=== PATIENT | female | born 1995 | race Caucasian/White ===

== ENCOUNTER 2017-01-26 19:02 | Emergency (ER) | payer OTHER ==
[~2017-01-26] VITALS: Ht 172.7 cm; Wt 102.4 kg
[~2017-01-26 19:02] MED LIST: DOXY100T PO; Z.0.NO CURRENT MEDS
[2017-01-26 19:07] VITALS: BP 151/81; PULSE 97; RESP 14; TEMP 98.6; O2SAT 100
--- NOTE | 2017-01-26 20:14 | PD ---
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 Patient's LMP was 12/27/16. This is her first . She took a home test which was positive. She states that 2 days ago she had some vaginal spotting that was more noticeable on the toilet paper. Yesterday she noticed last spotting, and today she is barely having any spotting. She has been having intermittent pelvic and lower back cramping. Currently she is pain- free. No urinary symptoms. No fevers or chills. PFSH Past Medical History Blood Disorders: No Diminished Hearing: No Musculoskeletal: Yes (LEFT ARM FRACTURE) Immunizations Current: Yes Tetanus Vaccination: Unknown Influenza Vaccination: No ?: LMP: 12/27/16 Social History Alcohol Use: Yes Tobacco Use: No Substance Use: No Allergies-Medications (Allergen,Severity, Reaction): Coded Allergies: No Known Allergies (Verified , 01/26/17) Reported Meds & Prescriptions Reported Meds & Active Scripts Active No Active Prescriptions or Reported Medications Review of Systems Except as stated in HPI: all other systems reviewed are Neg Physical Exam Narrative GENERAL: Well-developed, well-nourished, comfortable, no acute distress. SKIN: Focused skin assessment warm/dry. No rash. HEAD: Atraumatic. Normocephalic. EYES: Pupils equal and round. No scleral icterus. No injection or drainage. ENT: Mucous membranes pink and moist. CARDIOVASCULAR: Regular rate and rhythm. No murmur appreciated. RESPIRATORY: No accessory muscle use. Clear to auscultation. Breath sounds equal bilaterally. GASTROINTESTINAL: Abdomen soft, non-tender, nondistended. MUSCULOSKELETAL: No obvious deformities. No clubbing. No cyanosis. No edema. No CVA tenderness. No midline vertebral step-off or tenderness. NEUROLOGICAL: Awake and alert. No obvious cranial nerve deficits. Motor grossly within normal limits. Normal speech. PSYCHIATRIC: Appropriate mood and affect; insight and judgment normal. Data Data Last Documented VS Vital Signs Date Time Temp Pulse Resp B/P Pulse Ox O2 Delivery O2 Flow Rate FiO2 01/26/17 21:31 70 18 132/70 99 Room Air 01/26/17 19:07 98.6 Orders Beta Hcg (Quant/Titer) (01/26/17 20:01) Complete Blood Count With Diff (01/26/17 20:01) Comprehensive Metabolic Panel (01/26/17 20:01) Type And Screen (01/26/17 20:01) Urinalysis - C+S If Indicated (01/26/17 20:01) Ed Urine Pregnancytest Poc (01/26/17 20:01) Urine Culture (01/26/17 20:15) Us Pelvis (Ques Pr/Ect)W Trans (01/26/17 ) Rhogam Only (01/26/17 21:58) Labs Laboratory Tests Test 01/26/17 01/26/17 20:15 20:20 Urine Color YELLOW Urine Turbidity CLEAR Urine pH 6.0 Urine Specific [place] 1.010 Urine Protein NEG mg/dL Urine Glucose (UA) NEG mg/dL Urine Ketones NEG mg/dL Urine Occult Blood SMALL Urine Nitrite NEG Urine Bilirubin NEG Urine Leukocyte Esterase SMALL Urine RBC 0-3 /hpf Urine WBC 20-24 /hpf Urine Squamous Epithelial > 8 /hpf Cells Urine Bacteria FEW /hpf Microscopic Urinalysis Comment CULTURE INDICATED White Blood Count 12.0 TH/MM3 Red Blood Count 4.28 MIL/MM3 Hemoglobin 12.0 GM/DL Hematocrit 34.9 % Mean Corpuscular Volume 81.5 FL Mean Corpuscular Hemoglobin 28.1 PG Mean Corpuscular Hemoglobin 34.4 % Concent Red Cell Distribution Width 13.9 % Platelet Count 272 TH/MM3 Mean Platelet Volume 8.2 FL Neutrophils (%) (Auto) 69.1 % Lymphocytes (%) (Auto) 22.2 % Monocytes (%) (Auto) 7.4 % Eosinophils (%) (Auto) 0.9 % Basophils (%) (Auto) 0.4 % Neutrophils # (Auto) 8.3 TH/MM3 Lymphocytes # (Auto) 2.7 TH/MM3 Monocytes # (Auto) 0.9 TH/MM3 Eosinophils # (Auto) 0.1 TH/MM3 Basophils # (Auto) 0.0 TH/MM3 CBC Comment DIFF FINAL Differential Comment Sodium Level 142 MEQ/L Potassium Level 3.5 MEQ/L Chloride Level 107 MEQ/L Carbon Dioxide Level 27.2 MEQ/L Anion Gap 8 MEQ/L Blood Urea Nitrogen 8 MG/DL Creatinine 0.77 MG/DL Estimat Glomerular Filtration 95 ML/MIN Rate Random Glucose 115 MG/DL Calcium Level 9.0 MG/DL Total Bilirubin 0.2 MG/DL Aspartate Amino Transf 14 U/L (AST/SGOT) Alanine Aminotransferase 23 U/L (ALT/SGPT) Alkaline Phosphatase 40 U/L Total Protein 7.4 GM/DL Albumin 3.7 GM/DL Human Chorionic Gonadotropin, 34 MIU/ML Quant Blood Type A NEGATIVE Antibody Screen NEGATIVE Blood Bank Comment MDM Medical Decision Making Medical Screen Exam Complete: Yes Emergency Medical Condition: Yes Differential Diagnosis , first trimester bleeding, ectopic , implantation bleed, threatened , inevitable Narrative Course Vital signs reviewed. CBC shows WBC 12, hemoglobin 12, hematocrit 34.9, platelets 272. CMP is unremarkable. Beta hCG is 34. Blood type is A-. UA: Small occult blood, small leukocyte esterase, 20-24 WBCs, greater than 8 squamous epithelial cells, few bacteria. Pelvic ultrasound: CONCLUSION: 1. The endometrium is diffusely thickened which is nonspecific. 2. Ill-defined hypoechoic masslike area in the right ovary which may represent a complex cyst. 3. Small amount of free fluid in the cul-de-sac. Case discussed with on-call OB hospitalist. He recommends giving the patient RhoGam and close follow-up with 48 hour beta hCG. Patient was made aware of all findings. She is resting comfortably. Currently she is pain-free. There are no peritoneal signs on exam. She was provided a copy of her pelvic ultrasound report. She'll be started on Macrobid. She was instructed to return to the emergency department in 48 hours for repeat beta hCG. She was informed on when to return to the emergency Department sooner. She verbalizes understanding and agreement with plan. Diagnosis Primary Impression: First trimester bleeding Additional Impression: UTI (urinary tract infection) Qualified Code: N39.0 - Urinary tract infection with hematuria, site unspecified Referrals: Chemical Research Engineer 2 days Additional Instructions: Follow-up with an PU[employer] AND STILL OPERATOR doctor in the next 2 days. Return to the emergency department in 48 hours for repeat beta hCG. Return to the emergency Department sooner for worsening symptoms or any other concerns. Scripts Nitrofurantoin Monohydrate Macrocrystals (Macrobid)100 Mg [id number] Mg PO BID 7 Days Ref 0 Prov:Clifton Purvis MD 5/23/17 Disposition: 01 DISCHARGE HOME Condition: Stable Clifton Purvis MD January 26, 2017 20:14
[2017-01-26 20:30] LABS: AUTOMATED NEUTROPHIL # 8.3 TH/MM3 (1.8-7.7); BASOPHIL % 0.4 % (0.0-2.0); EOSINOPHIL # 0.1 TH/MM3 (0-0.4); EOSINOPHIL % 0.9 % (0.0-4.0); HEMATOCRIT 34.9 % (35.0-46.0); HEMO FLAGS DIFF FINAL; LYMPH % 22.2 % (9.0-44.0); LYMPHOCYTE # 2.7 TH/MM3 (1.0-4.8); MEAN CELL VOLUME 81.5 FL (80.0-100.0); MEAN CORPUSCULAR HEMOGLOBIN 28.1 PG (27.0-34.0); MEAN CORPUSCULAR HGB CONC 34.4 % (32.0-36.0); MONO % 7.4 % (0.0-8.0); NEUT % 69.1 % (16.0-70.0); PLATELET COUNT 272 TH/MM3 (150-450); RED BLOOD COUNT 4.28 MIL/MM3 (4.00-5.30); RED CELL DISTRIBUTION WIDTH 13.9 % (11.6-17.2)
[2017-01-26 20:33] LABS: BLOOD, URINE SMALL (NEG); GLUCOSE,URINE NEG (NEG); KETONE, URINE NEG (NEG); NITRITE,URINE NEG (NEG)
[2017-01-26 20:34] LABS: CHLORIDE 107 MEQ/L (98-107); POTASSIUM 3.5 MEQ/L (3.5-5.1); SODIUM (NA) 142 MEQ/L (136-145)
[2017-01-26 20:38] LABS: ANION GAP 8 MEQ/L (5-15); BICARBONATE 27.2 MEQ/L (21.0-32.0); BLOOD UREA NITROGEN 8 MG/DL (7-18)
[2017-01-26 20:41] LABS: ALT (GPT) 23 U/L (10-53); AST (GOT) 14 U/L (15-37); GLOMERULAR FILTRATION RATE 95 ML/MIN (>89)
[2017-01-26 20:43] LABS: TOTAL BILIRUBIN ADULT 0.2 MG/DL (0.2-1.0)
[2017-01-26 20:44] LABS: ALKALINE PHOSPHATASE 40 U/L (45-117)
[2017-01-26 20:46] LABS: BETA HCG QUANT 34 MIU/ML (0-5)
[2017-01-26 20:51] LABS: BACTERIA, URINE FEW /hpf; COMMENT (UR) CULTURE INDICATED; CULTURE IF INDICATED CULTURE INDICATED; RBC, URINE 0-3 /hpf (0-3); SQUAMOUS EPITHELIAL CELL URINE > 8 /hpf (0-5); URINE COLOR YELLOW (YELLW/STRAW)
[2017-01-26 21:31] VITALS: BP 132/70; PULSE 70; RESP 18; O2SAT 99
--- NOTE | 2017-01-26 21:31 | RADHPO ---
EXAM DATE/TIME: 01/26/2017 21:05 [facility] COMPARISON: No previous studies available for comparison. INDICATIONS : Spotting. LAB(S): Beta-hC MEDICAL HISTORY : . SURGICAL HISTORY : None. ENCOUNTER: Initial ACUITY: 1 day PAIN SCORE: 0/10 LOCATION: Bilateral pelvis MEASUREMENTS: UTERUS: 7.8 x 5.1 x 3.6 cm ENDOMETRIAL STRIPE: 15 mm RIGHT OVARY: 3.7 x 2.2 x 2.2 cm LEFT OVARY: 2.5 x 1.2 x 1.7 cm FREE FLUID: Yes CROWN RUMP LENGTH: not seen = WKS DAYS FHR: not seen BPM FINDINGS: UTERUS: The myometrium has homogeneous echotexture without mass. The endometrium is thickened. RIGHT OVARY: There is an ill-defined hypoechoic area in the right ovary measuring 1.6 x 1.3 x 1.5 cm with low leve l internal echogenicity and no color flow. LEFT OVARY: Ovary contains no mass or significant cystic lesion. MISCELLANEOUS: There is a small amount of free fluid in the cul-de-sac. CONCLUSION: 1. The endometrium is diffusely thickened which is nonspecific. 2. Ill-defined hypoechoic masslike area in the right ovary which may represent a complex cyst. 3. Small amount of free fluid in the cul-de-sac. George Hernandez MD on January 26, 2017 at 21:25 Board Certified Radiologist. This report was verified electronically.
[2017-01-26] MEDS ORDERED: MACR100C2 PO (22:09)
[2017-01-26] MEDS ORDERED: NITROFURANTOIN MONOHYD MACROCR 100 MG CAP PO ONE (22:15)
[2017-01-26 22:16] VITALS: BP 114/62; PULSE 74; RESP 18; O2SAT 99
[2017-01-26 23:43] VITALS: BP 110/60; PULSE 72; RESP 18; O2SAT 98
== END 2017-01-27 00:34 | disposition home or self-care (01) ==
LOC: PHED 19:02
DX: O23.41 Unspecified infection of urinary tract in pregnancy, first trimester (principal); O46.91 Antepartum hemorrhage, unspecified, first trimester; Z34.01 Encounter for supervision of normal first pregnancy, first trimester
CPT/HCPCS: 76700; 76817; 80053; 81001; 84702; 84703; 85025; 86850; 86900; 86901; 87086; 90384; 99284; J2790

== ENCOUNTER 2017-02-07 17:33 | Emergency (ER) | payer OTHER ==
[~2017-02-07] VITALS: Ht 172.7 cm; Wt 100.0 kg
[~2017-02-07 17:33] MED LIST changes: -DOXY100T PO; +MACR100C2 PO; -Z.0.NO CURRENT MEDS
[2017-02-07 17:34] VITALS: BP 159/90; PULSE 84; RESP 20; TEMP 98.8; O2SAT 100
--- NOTE | 2017-02-07 17:46 | PD ---
Physical Exam Date Seen by Provider: Feb 07, 2017 Time Seen by Provider: 17:44 Data Data Last Documented VS Vital Signs Date Time Temp Pulse Resp B/P Pulse Ox O2 Delivery O2 Flow Rate FiO2 02/07/17 17:34 98.8 84 20 159/90 100 Room Air [facility] Supervised Visit with GERRY: No Narrative Course 21 YO F with complaint of 3 hour history of vaginal bleeding and abdominal cramping. LMP ~12/24. Vitals reviewed. Awaiting bed placement. Nicolette Leon Feb 07, 2017 17:46
[2017-02-07] MEDS ORDERED: SODIUM CHLOR 0.9% 1000 ML INJ 1,000 ML IV ONE (18:15)
[2017-02-07 18:38] LABS: BLOOD, URINE LARGE (NEG); GLUCOSE,URINE NEG (NEG); KETONE, URINE NEG (NEG); NITRITE,URINE NEG (NEG); PH, URINE 5.5 (5.0-8.5); URINE COLOR LIGHT-YELLOW (YELLW/STRAW)
[2017-02-07 18:39] LABS: AUTOMATED NEUTROPHIL # 7.7 TH/MM3 (1.8-7.7); BASOPHIL % 0.4 % (0.0-2.0); EOSINOPHIL # 0.1 TH/MM3 (0-0.4); EOSINOPHIL % 0.9 % (0.0-4.0); HEMATOCRIT 33.9 % (35.0-46.0); HEMO FLAGS DIFF FINAL; LYMPH % 19.8 % (9.0-44.0); LYMPHOCYTE # 2.1 TH/MM3 (1.0-4.8); MEAN CELL VOLUME 81.7 FL (80.0-100.0); MEAN CORPUSCULAR HEMOGLOBIN 27.6 PG (27.0-34.0); MEAN CORPUSCULAR HGB CONC 33.8 % (32.0-36.0); MONO % 7.4 % (0.0-8.0); NEUT % 71.5 % (16.0-70.0); PLATELET COUNT 263 TH/MM3 (150-450); RED BLOOD COUNT 4.14 MIL/MM3 (4.00-5.30); RED CELL DISTRIBUTION WIDTH 14.6 % (11.6-17.2); WHITE BLOOD COUNT 10.8 TH/MM3 (4.0-11.0)
[2017-02-07 18:51] LABS: ALT (GPT) 23 U/L (10-53); ANION GAP 8 MEQ/L (5-15); AST (GOT) 15 U/L (15-37); BICARBONATE 26.9 MEQ/L (21.0-32.0); BLOOD UREA NITROGEN 7 MG/DL (7-18); CHLORIDE 105 MEQ/L (98-107); GLOMERULAR FILTRATION RATE 98 ML/MIN (>89); POTASSIUM 3.6 MEQ/L (3.5-5.1); SODIUM (NA) 140 MEQ/L (136-145)
[2017-02-07 18:55] LABS: ALKALINE PHOSPHATASE 43 U/L (45-117); BETA HCG QUANT 961 MIU/ML (0-5); TOTAL BILIRUBIN ADULT 0.2 MG/DL (0.2-1.0)
[2017-02-07 18:57] LABS: BACTERIA, URINE RARE /hpf; COMMENT (UR) CULT NOT INDICATED; COMMENT2 (UR) CULT NOT INDICATED; CULTURE IF INDICATED CULT NOT INDICATED; SQUAMOUS EPITHELIAL CELL URINE 0-5 /hpf (0-5); WBC, URINE 0-2 /hpf (0-5)
[2017-02-07 20:29] VITALS: BP 153/72; PULSE 73; RESP 18; O2SAT 98
--- NOTE | 2017-02-07 20:50 | RADRPT ---
EXAM DATE/TIME: 02/07/2017 19:50 [facility] COMPARISON: US PELVIS (QUEST PREG/ECTOPIC) W/TRANSVAG, January 26, 2017, 21:05. INDICATIONS : Pelvic pain and bleeding with . LAB(S): Beta-hC MEDICAL HISTORY : . Left arm fracture. SURGICAL HISTORY : Left leg fracture repair. ENCOUNTER: Subsequent ACUITY: 1 day PAIN SCORE: 5/10 LOCATION: Bilateral pelvis MEASUREMENTS: UTERUS: 8.7 x 4.3 x 3.8 cm ENDOMETRIAL STRIPE: 4 mm RIGHT OVARY: 3.9 x 1.9 x 1.9 cm LEFT OVARY: 2.1 x 1.7 x 1.5 cm FREE FLUID: Yes Trace amount in posterior cul de sac. CROWN RUMP LENGTH: Non visualized. = WKS DAYS FHR: Non visualized. BPM FINDINGS: UTERUS: complex fluid in the endocervical canal. No gestational sac. RIGHT OVARY: cyst in the right ovary measures 18 x 18 x 13 mm and slightly complex. LEFT OVARY: Ovary contains no mass or significant cystic lesion. MISCELLANEOUS: Trace pelvic free fluid. CONCLUSION: 1. No intrauterine identified. Close interval followup. 2. Complex fluid in the endocervical canal likely hemorrhage. 3. Ectopic not seen but not excluded. 4. Trace fluid in cul-de-sac. 5. Complex right ovarian cyst measuring 18 mm. Richard Jean Baptiste MD on February 07, 2017 at 20:46 Board Certified Radiologist. This report was verified electronically.
--- NOTE | 2017-02-07 21:06 | PD ---
HPI Chief Complaint: Related Problem Time Seen by Provider: 17:59 Travel History International Travel<30 days: No Contact w/Intl Traveler<30days: No Traveled to known affect area: No History of Present Illness HPI Patient 21 year old female approximately 4-6 weeks base on LMP, who comes in due to vaginal bleeding for 2 hours. She says that she started having bleeding like a normal period a few hours ago. She has passed clots, but has not noticed any tissue. She saw her OB about 5 days ago, and she says her beta hCG was around 970 at that point. She says she has some lower abdominal cramping. She denies dizziness, nausea, vomiting, fevers. [facility] Past Medical History Medical History: Denies Significant Hx Blood Disorders: No Diminished Hearing: No Musculoskeletal: Yes (LEFT ARM FRACTURE) Immunizations Current: Yes ?: LMP: 12/24/2016 Social History Alcohol Use: No Tobacco Use: No Substance Use: No Allergies-Medications (Allergen,Severity, Reaction): Coded Allergies: No Known Allergies (Verified , 02/07/17) Reported Meds & Prescriptions Reported Meds & Active Scripts Active No Active Prescriptions or Reported Medications Review of Systems Except as stated in HPI: all other systems reviewed are Neg General / Constitutional: No: Fever, Chills HENT: No: Headaches, Lightheadedness Cardiovascular: No: Chest Pain or Discomfort, Palpitations Respiratory: No: Shortness of Breath Gastrointestinal: No: Nausea, Vomiting Genitourinary: Positive: Vaginal Bleeding Musculoskeletal: No: Weakness Skin: No Rash, No Change in Pigmentation Physical Exam Narrative GENERAL: Awake and alert, no acute distress. SKIN: Focused skin assessment warm/dry. HEAD: Atraumatic. Normocephalic. EYES: Pupils equal and round. No scleral icterus. ENT: Mucous membranes pink and moist. NECK: Trachea midline. No JVD. CARDIOVASCULAR: Regular rate and rhythm. No murmur appreciated. RESPIRATORY: No accessory muscle use. Clear to auscultation. Breath sounds equal bilaterally. GASTROINTESTINAL: Abdomen soft, non-tender, nondistended. : Performed in the presence of female nurse. Blood coming from the os. Os appears open. No CMT. MUSCULOSKELETAL: No obvious deformities. No clubbing. No cyanosis. No edema. NEUROLOGICAL: Awake and alert. No obvious cranial nerve deficits. Motor grossly within normal limits. Normal speech. PSYCHIATRIC: Appropriate mood and affect; insight and judgment normal. Data Data Last Documented VS Vital Signs Date Time Temp Pulse Resp B/P Pulse Ox O2 Delivery O2 Flow Rate FiO2 02/07/17 20:29 73 18 153/72 98 Room Air 02/07/17 17:34 98.8 Orders Complete Blood Count With Diff (02/07/17 18:10) Comprehensive Metabolic Panel (02/07/17 18:10) Iv Access Insert/Monitor (02/07/17 18:10) Beta Hcg (Quant/Titer) (02/07/17 18:10) Urinalysis - C+S If Indicated (02/07/17 18:10) Ed Poc Ultrasound (02/07/17 ) Sodium Chlor 0.9% 1000 Ml Inj (Ns 1000 M (02/07/17 18:15) Ed Poc Ultrasound (02/07/17 ) Us Pelvis (Ques Pr/Ect)W Trans (02/07/17 ) Rhogam Only (02/07/17 21:07) Labs Laboratory Tests Test 02/07/17 02/07/17 02/07/17 18:27 18:28 21:22 Urine Color LIGHT-YELLOW Urine Turbidity CLEAR Urine pH 5.5 Urine Specific [place] 1.002 Urine Protein NEG mg/dL Urine Glucose (UA) NEG mg/dL Urine Ketones NEG mg/dL Urine Occult Blood LARGE Urine Nitrite NEG Urine Bilirubin NEG Urine Urobilinogen LESS THAN 2.0 MG/DL Urine Leukocyte Esterase NEG Urine RBC 4-9 /hpf Urine WBC 0-2 /hpf Urine Squamous Epithelial 0-5 /hpf Cells Urine Bacteria RARE /hpf Microscopic Urinalysis Comment CULT NOT INDICATED White Blood Count 10.8 TH/MM3 Red Blood Count 4.14 MIL/MM3 Hemoglobin 11.4 GM/DL Hematocrit 33.9 % Mean Corpuscular Volume 81.7 FL Mean Corpuscular Hemoglobin 27.6 PG Mean Corpuscular Hemoglobin 33.8 % Concent Red Cell Distribution Width 14.6 % Platelet Count 263 TH/MM3 Mean Platelet Volume 8.7 FL Neutrophils (%) (Auto) 71.5 % Lymphocytes (%) (Auto) 19.8 % Monocytes (%) (Auto) 7.4 % Eosinophils (%) (Auto) 0.9 % Basophils (%) (Auto) 0.4 % Neutrophils # (Auto) 7.7 TH/MM3 Lymphocytes # (Auto) 2.1 TH/MM3 Monocytes # (Auto) 0.8 TH/MM3 Eosinophils # (Auto) 0.1 TH/MM3 Basophils # (Auto) 0.0 TH/MM3 CBC Comment DIFF FINAL Differential Comment Sodium Level 140 MEQ/L Potassium Level 3.6 MEQ/L Chloride Level 105 MEQ/L Carbon Dioxide Level 26.9 MEQ/L Anion Gap 8 MEQ/L Blood Urea Nitrogen 7 MG/DL Creatinine 0.75 MG/DL Estimat Glomerular Filtration 98 ML/MIN Rate Random Glucose 116 MG/DL Calcium Level 9.3 MG/DL Total Bilirubin 0.2 MG/DL Aspartate Amino Transf 15 U/L (AST/SGOT) Alanine Aminotransferase 23 U/L (ALT/SGPT) Alkaline Phosphatase 43 U/L Total Protein 7.2 GM/DL Albumin 3.7 GM/DL Human Chorionic Gonadotropin, 961 MIU/ML Quant Blood Bank Comment MDM Medical Decision Making Medical Screen Exam Complete: Yes Emergency Medical Condition: Yes Medical Record Reviewed: Yes Differential Diagnosis miscarriage vs threatened vs UTI Narrative Course Patient is a 21-year-old female who comes in due to vaginal bleeding in . Exam shows blood from the os as well as an open cervical os. IV established, labs sent. Beta hCG is 961. Per patient her last beta, 5 days ago was 970. The hormone is not rising appropriately. Ultrasound performed shows an empty uterus. Last 24 hours Impressions Pelvis Ultrasound 02/07/17 0000 Signed Impressions: Service Date/Time: Tuesday, February 07, 2017 19:50 - CONCLUSION: 1. No intrauterine identified. Close interval followup. 2. Complex fluid in the endocervical canal likely hemorrhage. 3. Ectopic not seen but not excluded. 4. Trace fluid in cul-de-sac. 5. Complex right ovarian cyst measuring 18 mm. Richard Jean Baptiste MD Patient has blood type A-. I spoke with Dr. Agrawal of OB who suggests giving another dose of Rhogam. Patient given the Rhogam. She is advised to follow-up in 2-3 days with her OB for repeat beta hCG as well as repeat ultrasound. She is comfortable with this plan. She will be discharged home. Advised to return to the ED as needed for any worsening symptoms. Diagnosis Primary Impression: Patient Instructions: General Instructions, Miscarriage (ED) Additional Instructions: Your Beta HCG was 961 today. Follow up with your OB in 2-3 days for repeat blood work and ultrasound. You did receive Rhogam today because your blood type is A-. Return to the ED as needed for any worsening symptoms. Scripts No Active Prescriptions or Reported Meds Disposition: 01 DISCHARGE HOME Condition: Stable Chelsea Fang MD Feb 07, 2017 21:06
== END 2017-02-07 23:33 | disposition home or self-care (01) ==
LOC: NEPD 17:33
DX: O03.9 Complete or unspecified spontaneous abortion without complication (principal)
CPT/HCPCS: 76700; 76817; 80053; 81001; 84702; 85025; 90384; 96360; 96372; 99285; J7030; J2790

== ENCOUNTER 2017-07-13 22:25 | Emergency (ER) | payer OTHER ==
[~2017-07-13] VITALS: Ht 172.7 cm; Wt 105.0 kg
[2017-07-13 22:28] VITALS: BP 168/81; PULSE 74; RESP 16; TEMP 98.5; O2SAT 100
--- NOTE | 2017-07-14 00:18 | PD ---
HPI Chief Complaint: Complaint Time Seen by Provider: 23:58 Travel History International Travel<30 days: No Contact w/Intl Traveler<30days: No Traveled to known affect area: No History of Present Illness HPI 22-year-old female complains of lower abdominal discomfort. Patient states that she has intermittent lower abdominal discomfort for the past few months. Patient denies any nausea vomiting diarrhea. Patient denies any dysuria or frequency. Patient denies any vaginal discharge or bleeding. Patient was seen by electrician machine shop a month ago and had a pelvic exam done at that time. Patient states that she was treated for bacterial vaginosis. Patient has history of small ovarian cyst in the past. Patient states that she noticed small amount of blood on the tissue after she urinates this evening. PFSH Past Medical History Medical History: Denies Significant Hx Blood Disorders: No Diminished Hearing: No Musculoskeletal: Yes (LEFT ARM FRACTURE) Immunizations Current: Yes Tetanus Vaccination: Unknown Influenza Vaccination: No ?: Not LMP: 1-2 WEEK AGO Past Surgical History Surgical History: No Previous Surgery Social History Alcohol Use: No Tobacco Use: No Substance Use: No Allergies-Medications (Allergen,Severity, Reaction): Coded Allergies: No Known Allergies (Verified Adverse Reaction, Unknown, 07/13/17) Reported Meds & Prescriptions Reported Meds & Active Scripts Active No Active Prescriptions or Reported Medications Review of Systems General / Constitutional: No: Fever Eyes: No: Visual changes HENT: No: Headaches Cardiovascular: No: Chest Pain or Discomfort Respiratory: No: Shortness of Breath Gastrointestinal: Positive: Abdominal Pain Genitourinary: Positive: Pelvic Pain, No: Dysuria Musculoskeletal: No: Pain Skin: No Rash Neurologic: No: Weakness Psychiatric: No: Depression Endocrine: No: Polydipsia Hematologic/Lymphatic: No: Easy Bruising Physical Exam Narrative GENERAL: Well-nourished, well-developed patient. SKIN: Focused skin assessment warm/dry. HEAD: Normocephalic. EYES: No scleral icterus. No injection or drainage. NECK: Supple, trachea midline. No JVD or lymphadenopathy. CARDIOVASCULAR: Regular rate and rhythm without murmurs, gallops, or rubs. RESPIRATORY: Breath sounds equal bilaterally. No accessory muscle use. GASTROINTESTINAL: Abdomen soft, non-tender, nondistended. MUSCULOSKELETAL: No cyanosis, or edema. BACK: Nontender without obvious deformity. No CVA tenderness. POLITICAL SCIENCE PROFESSOR exam: No obvious blood in the vaginal vault. No cervical motion tenderness. Uterus is nonenlarged and nontender palpation. No adnexal masses or tenderness. Data Data Last Documented VS Vital Signs Date Time Temp Pulse Resp B/P (MAP) Pulse Ox O2 Delivery O2 Flow Rate FiO2 07/13/17 22:28 98.5 74 16 168/81 (110) 100 Orders Orders Complete Blood Count With Diff (07/14/17 00:08) Comprehensive Metabolic Panel (07/14/17 00:08) Urinalysis - C+S If Indicated (07/14/17 00:08) Beta Hcg (Quant/Titer) (07/14/17 00:08) Iv Access Insert/Monitor (07/14/17 00:08) MDM Medical Decision Making Medical Screen Exam Complete: Yes Emergency Medical Condition: Yes Differential Diagnosis Differential diagnosis including hematuria, urethritis, bladder spasm, cervicitis, , threatened AB. Narrative Course 22-year-old female with recurrent low abdominal pelvic pain and possible blood in the urine this evening. Scripts No Active Prescriptions or Reported Meds Colton Frazier MD Jul 14, 2017 00:18
[2017-07-14 00:34] LABS: AUTOMATED NEUTROPHIL # 7.3 TH/MM3 (1.8-7.7); BASOPHIL % 0.4 % (0.0-2.0); EOSINOPHIL # 0.2 TH/MM3 (0-0.4); EOSINOPHIL % 1.4 % (0.0-4.0); HEMATOCRIT 39.7 % (35.0-46.0); HEMO FLAGS DIFF FINAL; LYMPH % 29.5 % (9.0-44.0); LYMPHOCYTE # 3.5 TH/MM3 (1.0-4.8); MEAN CELL VOLUME 81.9 FL (80.0-100.0); MEAN CORPUSCULAR HEMOGLOBIN 27.2 PG (27.0-34.0); MEAN CORPUSCULAR HGB CONC 33.3 % (32.0-36.0); NEUT % 60.7 % (16.0-70.0); PLATELET COUNT 342 TH/MM3 (150-450); RED BLOOD COUNT 4.85 MIL/MM3 (4.00-5.30); RED CELL DISTRIBUTION WIDTH 13.7 % (11.6-17.2)
[2017-07-14 00:38] LABS: BLOOD, URINE NEG (NEG); GLUCOSE,URINE NEG (NEG); KETONE, URINE NEG (NEG); NITRITE,URINE NEG (NEG); SQUAMOUS EPITHELIAL CELL URINE <1 /hpf (0-5); TRANSITIONAL EPI CELLS, URINE <1 /hpf; URINE COLOR LIGHT-YELLOW (YELLW/STRAW)
[2017-07-14 00:47] LABS: COMMENT (UR) CULT NOT INDICATED; CULTURE IF INDICATED CULT NOT INDICATED
[2017-07-14 01:01] LABS: ALT (GPT) 34 U/L (10-53); ANION GAP 9 MEQ/L (5-15); AST (GOT) 21 U/L (15-37); BICARBONATE 27.8 MEQ/L (21.0-32.0); BLOOD UREA NITROGEN 7 MG/DL (7-18); CHLORIDE 103 MEQ/L (98-107); GLOMERULAR FILTRATION RATE 91 ML/MIN (>89); POTASSIUM 3.7 MEQ/L (3.5-5.1); SODIUM (NA) 140 MEQ/L (136-145)
[2017-07-14 01:04] LABS: ALKALINE PHOSPHATASE 55 U/L (45-117); BETA HCG QUANT LESS THAN 1 MIU/ML (0-5); TOTAL BILIRUBIN ADULT 0.4 MG/DL (0.2-1.0)
--- NOTE | 2017-07-14 01:41 | PD ---
Physical Exam Narrative Patient was signed out to me by Dr. Frazier pending lab results. Please see his documentation for full H&P. Briefly patient is 22-year-old female complaining of intermittent pelvic pain over the past 4-5 months. Patient denies anything making it better or worse. Patient states she saw a lining finisher several months ago but has not followed up since. Data Data Last Documented VS Vital Signs Date Time Temp Pulse Resp B/P (MAP) Pulse Ox O2 Delivery O2 Flow Rate FiO2 07/14/17 02:19 07/13/17 22:28 98.5 74 16 100 Orders Orders Complete Blood Count With Diff (07/14/17 00:08) Comprehensive Metabolic Panel (07/14/17 00:08) Urinalysis - C+S If Indicated (07/14/17 00:08) Beta Hcg (Quant/Titer) (07/14/17 00:08) Iv Access Insert/Monitor (07/14/17 00:08) Ed Discharge Order (07/14/17 01:41) Labs Laboratory Tests Test 07/14/17 00:20 White Blood Count 12.0 TH/MM3 Red Blood Count 4.85 MIL/MM3 Hemoglobin 13.2 GM/DL Hematocrit 39.7 % Mean Corpuscular Volume 81.9 FL Mean Corpuscular Hemoglobin 27.2 PG Mean Corpuscular Hemoglobin Concent 33.3 % Red Cell Distribution Width 13.7 % Platelet Count 342 TH/MM3 Mean Platelet Volume 8.3 FL Neutrophils (%) (Auto) 60.7 % Lymphocytes (%) (Auto) 29.5 % Monocytes (%) (Auto) 8.0 % Eosinophils (%) (Auto) 1.4 % Basophils (%) (Auto) 0.4 % Neutrophils # (Auto) 7.3 TH/MM3 Lymphocytes # (Auto) 3.5 TH/MM3 Monocytes # (Auto) 1.0 TH/MM3 Eosinophils # (Auto) 0.2 TH/MM3 Basophils # (Auto) 0.0 TH/MM3 CBC Comment DIFF FINAL Differential Comment Urine Color LIGHT-YELLOW Urine Turbidity CLEAR Urine pH 6.0 Urine Specific Silver Plume 1.006 Urine Protein NEG mg/dL Urine Glucose (UA) NEG mg/dL Urine Ketones NEG mg/dL Urine Occult Blood NEG Urine Nitrite NEG Urine Bilirubin NEG Urine Urobilinogen LESS THAN 2.0 MG/DL Urine Leukocyte Esterase NEG Urine RBC 1 /hpf Urine WBC 1 /hpf Urine Squamous Epithelial Cells <1 /hpf Urine Transitional Epithelial Cells <1 /hpf Microscopic Urinalysis Comment CULT NOT INDICATED Blood Urea Nitrogen 7 MG/DL Creatinine 0.79 MG/DL Random Glucose 87 MG/DL Total Protein 8.5 GM/DL Albumin 4.2 GM/DL Calcium Level 9.7 MG/DL Alkaline Phosphatase 55 U/L Aspartate Amino Transf (AST/SGOT) 21 U/L Alanine Aminotransferase (ALT/SGPT) 34 U/L Total Bilirubin 0.4 MG/DL Sodium Level 140 MEQ/L Potassium Level 3.7 MEQ/L Chloride Level 103 MEQ/L Carbon Dioxide Level 27.8 MEQ/L Anion Gap 9 MEQ/L Estimat Glomerular Filtration Rate 91 ML/MIN Human Chorionic Gonadotropin, Quant LESS THAN 1 MIU/ML MDM Supervised Visit with GERRY: No Interpretation(s) Laboratory Tests Test 07/14/17 00:20 White Blood Count 12.0 TH/MM3 (4.0-11.0) Red Blood Count 4.85 MIL/MM3 (4.00-5.30) Hemoglobin 13.2 GM/DL (11.6-15.3) Hematocrit 39.7 % (35.0-46.0) Mean Corpuscular Volume 81.9 FL (80.0-100.0) Mean Corpuscular Hemoglobin 27.2 PG (27.0-34.0) Mean Corpuscular Hemoglobin Concent 33.3 % (32.0-36.0) Red Cell Distribution Width 13.7 % (11.6-17.2) Platelet Count 342 TH/MM3 (150-450) Mean Platelet Volume 8.3 FL (7.0-11.0) Neutrophils (%) (Auto) 60.7 % (16.0-70.0) Lymphocytes (%) (Auto) 29.5 % (9.0-44.0) Monocytes (%) (Auto) 8.0 % (0.0-8.0) Eosinophils (%) (Auto) 1.4 % (0.0-4.0) Basophils (%) (Auto) 0.4 % (0.0-2.0) Neutrophils # (Auto) 7.3 TH/MM3 (1.8-7.7) Lymphocytes # (Auto) 3.5 TH/MM3 (1.0-4.8) Monocytes # (Auto) 1.0 TH/MM3 (0-0.9) Eosinophils # (Auto) 0.2 TH/MM3 (0-0.4) Basophils # (Auto) 0.0 TH/MM3 (0-0.2) CBC Comment DIFF FINAL Differential Comment Urine Color LIGHT-YELLOW (YELLW/STRAW) Urine Turbidity CLEAR (CLEAR) Urine pH 6.0 (5.0-8.5) Urine Specific Silver [place]ume 1.006 (1.002-1.035) Urine Protein NEG mg/dL (NEG-TRACE) Urine Glucose (UA) NEG mg/dL (NEG) Urine Ketones NEG mg/dL (NEG) Urine Occult Blood NEG (NEG) Urine Nitrite NEG (NEG) Urine Bilirubin NEG (NEG) Urine Urobilinogen LESS THAN 2.0 MG/DL (LESS Urine Leukocyte Esterase NEG (NEG) Urine RBC 1 /hpf (0-3) Urine WBC 1 /hpf (0-5) Urine Squamous Epithelial Cells <1 /hpf (0-5) Urine Transitional Epithelial Cells <1 /hpf (NONE) Microscopic Urinalysis Comment CULT NOT INDICATED Blood Urea Nitrogen 7 MG/DL (7-18) Creatinine 0.79 MG/DL (0.50-1.00) Random Glucose 87 MG/DL (74-106) Total Protein 8.5 GM/DL (6.4-8.2) Albumin 4.2 GM/DL (3.4-5.0) Calcium Level 9.7 MG/DL (8.5-10.1) Alkaline Phosphatase 55 U/L (45-117) Aspartate Amino Transf (AST/SGOT) 21 U/L (15-37) Alanine Aminotransferase (ALT/SGPT) 34 U/L (10-53) Total Bilirubin 0.4 MG/DL (0.2-1.0) Sodium Level 140 MEQ/L (136-145) Potassium Level 3.7 MEQ/L (3.5-5.1) Chloride Level 103 MEQ/L (98-107) Carbon Dioxide Level 27.8 MEQ/L (21.0-32.0) Anion Gap 9 MEQ/L (5-15) Estimat Glomerular Filtration Rate 91 ML/MIN (>89) Human Chorionic Gonadotropin, Quant LESS THAN 1 MIU/ML (0-5) Narrative Course Patient in no obvious distress upon re-evaluation. All pertinent laboratory/ Radiology result(s) discussed with patient. Any questions/concerns in reference to patient diagnosis/condition discussed and clarified prior to patient's discharge. Reinforced sheer importance of close follow up with patient's primary physician or primary care clinic and/or lining finisher. Instructed patient to return to ED immediately, if symptoms return/worsen. Patient showed understanding of above instructions. Further instructions and recommendations were detailed in discharge paperwork. Patient ambulated without difficulty out of ED at discharge. Diagnosis Primary Impression: Chronic pelvic pain in female Patient Instructions: General Instructions, Pelvic Pain in Women (DC) Additional Instruction: Follow-up with your primary care physician and/or lining finisher for further evaluation. Return to the emergency department if symptoms get worse. Scripts No Active Prescriptions or Reported Meds Disposition: 01 DISCHARGE HOME Condition: Stable Marcos Ramirez Jul 14, 2017 01:41
== END 2017-07-14 02:22 | disposition home or self-care (01) ==
LOC: NEPD 22:25
DX: R10.2 Pelvic and perineal pain (principal); G89.29 Other chronic pain
CPT/HCPCS: 80053; 81001; 84702; 85025; 99283